=== PATIENT | female | born 1965 | race Caucasian/White ===

== ENCOUNTER 2018-04-09 10:14 | Outpatient (CLI) | payer MEDICARE, OTHER, SELFPAY ==
[2018-04-09 11:37] LABS: Hemoglobin A1C 8.4 % (4.5-6.2)
[2018-04-09 11:55] LABS: Anion Gap 11.4 mmol/L (3-11); BUN 17 mg/dL (7-18); CO2 24.6 mmol/L (21.0-32.0); CREATININE 0.79 mg/dL (0.55-1.02); Calcium 9.3 mg/dL (8.5-10.1); Chloride 108 mmol/L (98-107); Cholesterol 169 mg/dL (50-200); Glucose 90 mg/dL (70-100); HDL Cholesterol 48 mg/dL (40-60); LDL CHOLESTEROL 100 mg/dL (<100); Potassium 4.5 mmol/L (3.5-5.1); Sodium 144 mmol/L (136-145); Triglyceride 130 mg/dL (30-150)
[2018-04-09 11:56] LABS: COMMENT (LAB VIEW ONLY) 34.48 mg/dL; Microalb ug/mg Crea 15.4 ug/mg Cr
== END 2018-04-09 10:34 ==
PROVIDERS: PCP Nurse Practitioner Family; Visit Provider Nurse Practitioner Family
DX: E78.5 Hyperlipidemia, unspecified; E11.65 Type 2 diabetes mellitus with hyperglycemia
CPT/HCPCS: 36415; 80048; 80061; 83721; 82043; 82570; 83036

== ENCOUNTER → 2018-05-10 09:29 | Outpatient (BNVA) | payer MEDICARE, OTHER, SELFPAY | PROVIDERS: PCP Nurse Practitioner Family; Visit Provider Orthopaedic Surgery | DX: M17.12 Unilateral primary osteoarthritis, left knee (principal) | CPT/HCPCS: 20610; 99211; 99213; J1040 ==

== ENCOUNTER → 2018-08-27 10:38 | Outpatient (BNVA) | payer MEDICARE, OTHER, SELFPAY | PROVIDERS: PCP Nurse Practitioner Family; Referring Provider Nurse Practitioner Family; Visit Provider Orthopaedic Surgery | DX: M17.12 Unilateral primary osteoarthritis, left knee (principal); M65.331 Trigger finger, right middle finger; M54.9 Dorsalgia, unspecified | CPT/HCPCS: 26010; 99211; 99213; J1040 ==

== ENCOUNTER 2018-10-05 06:32 | Day surgery (SDC) | payer MEDICARE, OTHER, SELFPAY ==
[2018-10-05 06:44] VITALS: BP 115/64; PULSE 76; RESP 16; TEMP 36.1; O2SAT 97
[2018-10-05] MEDS: Lidocaine 2% Multi-Dose 50 ML VIAL (07:45)
--- NOTE | 2018-10-05 08:02 | W.PM.DSUDISC ---
Discharge Plan Disposition Patient Disposition: HOME Condition: Improving Discharge Details Reason For Visit: trigger finger Attending Provider: Julius Aguirre Primary Care Provider: Adrianne Alvarez Home Meds and New Rx's Prescriptions: Continued Shingrix (PF) 50 mcg/0.5 mL suspension for reconstitution 50 mcg IM .COMPLEX Qty: 1 RF: 1 blood-glucose meter 1 EACH misc 1 ea Miscellaneous DAILY Qty: 1 RF: 0 nystatin 15 GM cream 1 film Topical BID Qty: 1 RF: 3 blood sugar diagnostic [Blood Glucose Test] 1 EACH strip 1 ea Miscellaneous QID Qty: 400 RF: 3 lancets [Accu-Chek FastClix Lancing Dev] 1 EACH misc 1 ea Miscellaneous QID Qty: 400 RF: 3 Novolog Flexpen U-100 Insulin 100 UNIT/1 ML insulin pen 0 - 15 units Sub-Q AC Qty: 5 RF: 3 duloxetine 60 MG capsule,delayed release(DR/EC) 60 mg PO DAILY Qty: 90 RF: 3 Lantus Solostar U-100 Insulin 100 UNIT/1 ML insulin pen 88 units SQ HS Qty: 5 RF: 3 albuterol sulfate [Proventil HFA] 6.7 GM HFA aerosol inhaler 1 - 2 puff Inhalation Q4-6H PRN Qty: 1 RF: 3 polyethylene glycol 3350 [Miralax] 17 GM powder in packet 255 gm PO for colonoscopy Qty: 1 RF: 0 bisacodyl [Dulcolax (bisacodyl)] 5 MG tablet,delayed release (DR/EC) 5 mg PO ONCE Qty: 4 RF: 0 trazodone 100 MG tablet 100 mg PO HS Qty: 90 RF: 3 topiramate 50 MG tablet 50 mg PO BID Qty: 180 RF: 3 cyclobenzaprine 10 mg tablet 10 mg PO BID PRN (Reason: muscle spasm) Qty: 60 RF: 0 Jardiance 25 mg tablet 25 mg PO DAILY Qty: 90 RF: 3 fluticasone propionate 50 mcg/actuation spray,suspension 1 - 2 spray Intranasal DAILY PRN (Reason: allergy symptoms) Qty: 3 RF: 3 lisinopril [Prinivil] 20 mg tablet 20 mg PO DAILY Qty: 90 RF: 3 metformin 1,000 mg tablet 1,000 mg PO BID Qty: 180 RF: 3 omeprazole 20 mg capsule,delayed release(DR/EC) 20 mg PO BID Qty: 180 RF: 3 simvastatin 40 mg tablet 40 mg PO DAILY Qty: 90 RF: 3 Discharge Instructions Additional Instructions: KEEP YOUR RIGHT HAND ELEVATED ABOVE HEART LEVEL NEEDED TO HELP CONTROL PAIN AND SWELLING. EXERCISE YOUR FINGERS COMFORT ALLOWS. EXPECT A SMALL AMOUNT OF BLOODY DRAINAGE ON THE GAUZE BANDAGES. FOR SHOWERING TOMORROW, COVER YOUR HAND WITH A PLASTIC BAG AND A RUBBER BAND ABOUT THE FOREARM TO KEEP THE BANDAGES DRY. ON Monday10/07/18, YOU MAY REMOVE ALL OF YOUR BANDAGES AND GET YOUR INCISION WET IN THE SHOWER WITH SOAP AND WATER. GENTLY PAT THE STITCH DRY AND COVER YOUR WOUND WITH A BANDAID. RESUME NORMAL ACTIVITY TOLERATED. TAKE TYLENOL, ADVIL OR ALEVE FOR ANY DISCOMFORT. FOLLOW-UP WITH DR. AGUIRRE IN 1 WEEK FOR STITCH REMOVAL. Stand Alone Forms: Trevor Hung (DSU) Activity:: Elevate Remove Dressings/Wound Care:: 48 hours Shower/Bathe:: 48 hours Diet:: Carb Counting Discharge Orders Discharge Orders: Discharge Order (Routine); Ordered 10/05/18 Ordered By: Julius Aguirre Discharge Data Discharge Date/Time-TO BE ENTERED AT DEPARTURE: 10/05/18 08:11 DS: Diagnosis Discharge Diagnosis (1) Trigger finger: Status: Acute (2) Trigger finger: Status: Acute
--- NOTE | 2018-10-05 12:19 | ROE_ITS ---
REPORT OF OPERATIVE PROCEDURE DATE OF SURGERY October 05, 2018 PREOPERATIVE DIAGNOSIS Trigger finger, right middle finger. POSTOPERATIVE DIAGNOSIS Trigger finger, right middle finger. PROCEDURE Release A1 lonny, right middle finger. SURGEON Julius Larose M.D. [employer] Nurse ANESTHETIC 2% lidocaine plain. PREP ChloraPrep. INDICATIONS This patient has been troubled by chronic trigger finger abnormality of her ft middle finger. This murphy s been somewhat disabling for her. She has multiple medical problems and allergies. I met the patient in the Day Surgery holding area and re-reviewed the planned procedure with her, as she has had this done before on other fingers. The risks and benefits were discussed. She understood and wished to pr oceed. I marked her right middle finger. DESCRIPTION OF PROCEDURE She was brought to the Operating Suite, where time-out was instituted. The right hand was then preppe d with ChloraPrep. Sterile drapes were applied. Then, 2% lidocaine was used to create an anesthetic w heal over the MCP joint region on the volar surface of her right palm. After waiting an adequate amou nt of time and verifying anesthesia to the fingertip, a 1-cm transverse incision was made over the A1 lonny. The rest of the dissection was done by blunt dissection using Littler scissors. Ragnell ret ractors were inserted. The flexor tendon sheath was identified. A small opening was made with a #15 s calpel blade and then this was extended with Littler scissors. I had the patient flex and extend her middle finger, and she could do so without any further triggering. There was a mild amount of extrane ous synovial fluid verifying the abnormality. The wound was irrigated with saline and closed with a s mary suture of #5-0 Ethilon in a horizontal mattress fashion. The wound was dressed with Xeroform ga uze, 4x4s and a 2-inch conforming gauze bandage. The patient was taken to the Outpatient Recovery Courtney dickey tolerating the procedure well.
== END 2018-10-05 08:11 | disposition home or self-care (01) ==
PROVIDERS: PCP Nurse Practitioner Family; Visit Provider Orthopaedic Surgery
PROC: (CPT 26055; principal; 2018-10-05 07:30)
DX: M65.331 Trigger finger, right middle finger (principal)
CPT/HCPCS: 26055

== ENCOUNTER → 2018-10-11 08:37 | Outpatient (BNVA) | payer MEDICARE, OTHER, SELFPAY | PROVIDERS: PCP Nurse Practitioner Family; Referring Provider Nurse Practitioner Family; Visit Provider Orthopaedic Surgery | DX: Z47.89 Encounter for other orthopedic aftercare (principal); M65.331 Trigger finger, right middle finger ==

== ENCOUNTER → 2018-11-27 09:50 | Outpatient (BNVA) | payer MEDICARE, OTHER, SELFPAY | PROVIDERS: PCP Nurse Practitioner Family; Referring Provider Nurse Practitioner Family; Visit Provider Orthopaedic Surgery | DX: M17.12 Unilateral primary osteoarthritis, left knee (principal); M25.512 Pain in left shoulder; F17.210 Nicotine dependence, cigarettes, uncomplicated | CPT/HCPCS: 20610; 99211; 99212; J1040 ==

== ENCOUNTER → 2019-02-28 10:28 | Outpatient (BNVA) | payer MEDICARE, OTHER, SELFPAY | PROVIDERS: PCP Nurse Practitioner Family; Referring Provider Nurse Practitioner Family; Visit Provider Orthopaedic Surgery | DX: M17.12 Unilateral primary osteoarthritis, left knee (principal); E11.9 Type 2 diabetes mellitus without complications; Z79.4 Long term (current) use of insulin | CPT/HCPCS: 20610; 99211; 99213; J1040 ==

== ENCOUNTER 2019-05-07 07:52 | Outpatient (CLI) | payer MEDICARE, OTHER, SELFPAY ==
[2019-05-07 09:04] LABS: Hemoglobin A1C 8.1 % (4.5-6.2)
[2019-05-07 10:40] LABS: COMMENT (LAB VIEW ONLY) 32.58 mg/dL; Microalb ug/mg Crea 38.4 ug/mg Cr
[2019-05-07 11:11] LABS: Anion Gap 10.6 mmol/L (3-11); BUN 20 mg/dL (7-18); CO2 24.4 mmol/L (21.0-32.0); CREATININE 0.91 mg/dL (0.55-1.02); Calcium 9.9 mg/dL (8.5-10.1); Calculated LDL 160 mg/dL; Chloride 104 mmol/L (98-107); Cholesterol 243 mg/dL (50-200); Glucose 282 mg/dL (70-100); HDL Cholesterol 47 mg/dL (40-60); Sodium 139 mmol/L (136-145); Triglyceride 180 mg/dL (30-150)
== END 2019-05-07 08:12 ==
PROVIDERS: PCP Nurse Practitioner Family; Visit Provider Nurse Practitioner Family
DX: E11.29 Type 2 diabetes mellitus with other diabetic kidney complication (principal); R50.9 Fever, unspecified; E78.5 Hyperlipidemia, unspecified
CPT/HCPCS: 36415; 80048; 80061; 82043; 82570; 83036

== ENCOUNTER 2019-06-03 11:56 | Outpatient (CLI) | payer MEDICARE, OTHER, SELFPAY ==
--- NOTE | 2019-06-03 10:56 | DI.RAD_ITS ---
EXAM: XR STANDING ALIGNMENT INDICATION: left knee pain. COMPARISON: No exams were available for comparison TECHNIQUE: 2D digital imaging was performed. FINDINGS: Standing AP views were performed from the iliac crests through the ankles. There is mild bilateral h ip joint space narrowing and acetabular spurring. The right femoral head projects a few millimeters higher than the left. The knee joint spaces are relatively well maintained. Periarticular spurring is seen, greatest at the lateral tibial plateau on the left. There are minimal degenerative changes at the ankles. IMPRESSION: Degenerative changes greatest of the left lateral femoral tibial joint. Mild leg length discrepancy.
--- NOTE | 2019-06-03 10:56 | DI.RAD_ITS ---
EXAM: XR KNEE LT 2V AP,LAT INDICATION: left knee pain. COMPARISON: MRI L LOWER JOINT WO CONT from 07/21/2014 TECHNIQUE: 2D digital imaging was performed. FINDINGS: There is moderate narrowing of the lateral femoral tibial joint greater laterally. There is some jazmyne payal angulation. There is mild periarticular spurring. There is minimal spurring at the articular as pect of patella. IMPRESSION: Moderate to severe degenerative changes of the lateral femoral tibial joint
== END 2019-06-03 12:16 ==
PROVIDERS: PCP Nurse Practitioner Family; Referring Provider Nurse Practitioner Family; Visit Provider Student in an Organized Health Care Education/Training Program
DX: M25.562 Pain in left knee (principal); M17.12 Unilateral primary osteoarthritis, left knee; M21.70 Unequal limb length (acquired), unspecified site; F40.240 Claustrophobia; Z98.890 Other specified postprocedural states
CPT/HCPCS: 99213; 73560; 77073

== ENCOUNTER 2019-06-06 02:19 | Outpatient (CLI) | payer MEDICARE, OTHER, SELFPAY ==
--- NOTE | 2019-06-06 07:48 | DI.MRI_ITS ---
EXAM: MR LOWER JOINT LT WO CLINICAL HISTORY: left knee pain,. TECHNIQUE: Multiplanar multisequence MRI was performed. COMPARISON: MRI L LOWER JOINT WO CONT from 07/21/2014 FINDINGS: The anterior and posterior cruciate ligaments are unremarkable. The medial and lateral collateral ligaments are intact. The extensor mechanism, medial and lateral retinaculum and popliteus tendon are unremarkable. There is thinning of the articular cartilage in both the medial and lateral femoral tibial joints. The medial meniscus is intact. There is decreased size and abnormal signal seen in the body of the l ateral meniscus. There is abnormal signal seen in both the anterior and posterior horns of the later al meniscus. While this may represent a tear, degeneration and postsurgical changes should be consid ered. There is no evidence of occult fracture or avascular necrosis. There is a small joint effusion. No popliteal cyst is present. The muscles show normal signal and size. IMPRESSION: Abnormal signal in size in the lateral meniscus. This may be postsurgical, degeneration or tear. No evidence of a ligament tear.
== END 2019-06-06 02:39 ==
PROVIDERS: PCP Nurse Practitioner Family; Visit Provider Physician Assistant
DX: M25.562 Pain in left knee (principal); M25.462 Effusion, left knee; M25.862 Other specified joint disorders, left knee
CPT/HCPCS: 73721

== ENCOUNTER → 2019-06-20 12:53 | Outpatient (BNVA) | payer MEDICARE, OTHER, SELFPAY | PROVIDERS: PCP Nurse Practitioner Family; Referring Provider Nurse Practitioner Family; Visit Provider Student in an Organized Health Care Education/Training Program | DX: M17.12 Unilateral primary osteoarthritis, left knee (principal); M25.562 Pain in left knee; I10 Essential (primary) hypertension; E11.9 Type 2 diabetes mellitus without complications; Z79.4 Long term (current) use of insulin | CPT/HCPCS: 20610; 99213; J7318 ==

== ENCOUNTER → 2019-09-02 13:15 | Outpatient (BNVA) | payer MEDICARE, OTHER, SELFPAY | PROVIDERS: PCP Nurse Practitioner Family; Referring Provider Nurse Practitioner Family; Visit Provider Student in an Organized Health Care Education/Training Program | DX: M17.12 Unilateral primary osteoarthritis, left knee; M25.562 Pain in left knee; I10 Essential (primary) hypertension; E11.9 Type 2 diabetes mellitus without complications | CPT/HCPCS: 99213 ==

== ENCOUNTER → 2019-11-04 09:42 | Outpatient (BNVA) | payer MEDICARE, OTHER, SELFPAY | PROVIDERS: PCP Nurse Practitioner Family; Referring Provider Nurse Practitioner Family; Visit Provider Student in an Organized Health Care Education/Training Program | DX: M17.12 Unilateral primary osteoarthritis, left knee; M25.562 Pain in left knee; E11.9 Type 2 diabetes mellitus without complications; Z79.4 Long term (current) use of insulin | CPT/HCPCS: 99212; 99213 ==

== ENCOUNTER 2020-04-03 02:27 | Outpatient (CLI) | payer MEDICARE, OTHER, SELFPAY ==
[2020-04-03 10:06] LABS: HCT 42.1 % (36.0-46.0); HGB 13.8 g/dL (11.2-15.7); MCH 30.5 pg (27.0-33.0); MCHC 32.8 % (32.0-36.0); MCV 92.9 fL (80-95); MPV 9.9 fL (8.0-11.0); Platelet Count 395 10^3/uL (130-400); RBC 4.53 10^6/uL (3.93-5.22); RDW 12.4 % (11.7-14.6); RDW-SD 42.5 fL; WBC 15.44 10^3/uL (4.4-10.8)
[2020-04-03 11:08] LABS: Anion Gap 10.1 mmol/L (3-11); BUN 16 mg/dL (7-18); CO2 24.9 mmol/L (21.0-32.0); CREATININE 0.97 mg/dL (0.55-1.02); Calcium 9.7 mg/dL (8.5-10.1); Chloride 105 mmol/L (98-107); Estimated GFR 59.84 (mL/min/1.73m2); Glucose 102 mg/dL (74-106); Potassium 4.8 mmol/L (3.5-5.1); Sodium 140 mmol/L (136-145)
[2020-04-04 17:55] LABS: COVID-19 RT-PCR Result NEGATIVE (Negative)
== END 2020-04-03 02:47 ==
PROVIDERS: PCP Nurse Practitioner Family; Visit Provider Student in an Organized Health Care Education/Training Program
DX: M25.562 Pain in left knee (principal); M17.12 Unilateral primary osteoarthritis, left knee; Z11.59 Encounter for screening for other viral diseases; Z01.818 Encounter for other preprocedural examination
CPT/HCPCS: 36415; 80048; 85027; U0003

== ENCOUNTER 2020-04-03 09:41 | Outpatient (CLI) | payer MEDICARE, OTHER, SELFPAY ==
--- NOTE | 2020-04-03 09:00 | DI.RAD_ITS ---
EXAM: XR KNEE LT 3V AP,LAT,JEREMY CLINICAL HISTORY: knee pain TECHNIQUE: COMPARISON: CR XR KNEE LT 2V AP,LAT from 06/03/2019 FINDINGS: Three views were obtained. There is mild narrowing of the lateral tibiofemoral cartilaginous joint s pace. There is slight marginal osteophyte formation at the lateral tibiofemoral joint. Examination is otherwise unremarkable. IMPRESSION: Mild DJD lateral tibiofemoral joint. RADIATION DOSE DELIVERED: Total DLP
== END 2020-04-03 10:01 ==
PROVIDERS: PCP Nurse Practitioner Family; Referring Provider Nurse Practitioner Family; Visit Provider Physician Assistant
DX: M17.12 Unilateral primary osteoarthritis, left knee (principal); M25.562 Pain in left knee; Z11.59 Encounter for screening for other viral diseases; Z01.818 Encounter for other preprocedural examination
CPT/HCPCS: 36415; 73562; 80048; 85027; U0003

== ENCOUNTER 2020-04-08 06:00 | Observation (INO) | payer MEDICARE, OTHER, SELFPAY ==
[2020-04-08] VITALS (17 sets, daily range): BP systolic 119–146; BP diastolic 57–75; PULSE 74–87; RESP 12–22; TEMP 36.3–37; O2SAT 94–98
[2020-04-08] MEDS: Acetaminophen 500 MG TAB 1000 MG PO ×2 (06:50→13:37)
[2020-04-08] MEDS: Celecoxib 200 MG CAP 400 MG PO (06:50)
[2020-04-08] MEDS: Lactated Ringers 1,000 ML 80 ML IV ×2 (06:55→09:55)
[2020-04-08] MEDS: Bupivacaine 0.5% Pres-Free 30 ML VIAL (07:11)
[2020-04-08] MEDS: ceFAZolin 2 GM/50 ML BAG IVPB (07:36)
[2020-04-08] MEDS: Albuterol/Ipratropium 3 ML UPD VIAL (08:15)
[2020-04-08] MEDS: Bupivacaine 0.25% Pres-Free 30 ML VIAL (08:49)
[2020-04-08] MEDS: Normal Saline 20 ML VIAL (08:50)
[2020-04-08] MEDS: Ketorolac 30 MG/ML VIAL (08:52)
--- NOTE | 2020-04-08 08:59 | W.PM.OP ---
Date of service: 04/08/20 Time of Service: 08:59 Operative Note Operative Note DATE OF PROCEDURE: 04/08/20 PRE-OP DIAGNOSIS: Left Knee Osteoarthritis POST-OP DIAGNOSIS: same PROCEDURE: Left Total Knee Replacement SURGEON: Roger Kerns GRAIN OILSEED OR PASTURE FARM MANAGER: Iliana Guevara ANESTHESIA: regional and spinal ESTIMATED BLOOD LOSS: 250 PATHOLOGY: none sent TOURNIQUET TIME: 0 COMPLICATIONS: None Patient was transported to: PACU Patient's condition: stable Implants: 1. Depuy Attune Cementless Cruciate Retaining Femoral Component, Size 5 2. Depuy Attune Cementless Rotating Platform Tibial Component, Size 5 3. Depuy Attune 5x7mm CR/RP Poly 4. Depuy Attune Patellar Component, Size 35 Indications: I have seen Melanie in clinic for symptoms of knee arthritis, confirmed with radiographic findings. She has exhausted nonoperative methods and was having significant limitations in daily function and desired better function and less pain. I discussed the technical details of a knee replacement. I explained the risks of the procedure to include, but not limited to, bleeding, infection, pain, stiffness, fracture, damage to nerves and vessels, damage to muscles and tendons, loosening, need for repeat procedure, blood clot and cardiopulmonary demise. Despite these risks, Melanie elected to proceed. Findings: There was significant signs of arthritis throughout the knee. Focal full thickness cartilage defects were noted on both the medial and lateral femoral condyles as well as the patellar apex. Procedure Description: Melanie was greeted in the preoperative holding area where the correct side was identified and marked. The consent was reviewed with the patient and signed. The history and physical was updated. All questions were answered. Preoperative medications were administered: Acetaminophen 1000mg, Celebrex 400mg, and Gabapentin 300mg. An adductor canal block was then administered by the anesthesia team in the PACU. Melanie was taken back to the operating room. A spinal anesthestic was then administered. The patient was placed into the supine position on the operating room table. A nonsterile tourniquet was placed high onto the leg but only used for cementing. Posts were placed for positioning during the procedure. All bony prominences were well padded. Prophylactic antibiotics in the form of Cefazolin were administered. 1g of Tranxemic Acid was given intravenously within 30 minutes of incision. The left leg was then prepped with Chloraprep and draped in a standard fashion with impervious stockinette. A second prep with Chloraprep was performed prior to application of Iodine impregnated skin protection. A timeout to confirm correct identity, side and site, procedure, allergies, anesthesia, and medical concerns was performed. With the knee in some flexion, a midline incision was made overlying the knee. Full thickness skin flaps were raised once the extensor mechanism was encountered. These were raised medially and laterally. Any bleeding was controlled with electrocautery. Once the extensor mechanism was fully exposed, a medial parapatellar arthrotomy was performed in a flexed position. All bleeding from the arthrotomy and the geniculate arteries was coagulated. A medial subperiosteal peel was performed with electrocautery to the midcoronal plane. The fat pad was removed while keeping the patellar tendon protected. The anterior distal femur synovium was removed for later visualization. The ACL and PCL were resected and the anterior horn of the lateral meniscus was transected. The knee was then flexed with the patella everted. There were full thickness defects of the cartilage seen over the medial and lateral distal femur. Using a step drill, and based on preoperative templating, the femoral canal was entered. This was done with a step drill without any difficulty. The intramedullary distal femoral cut guide was inserted, set to a 6 degree valgus cut and 9mm cut thickness. The distal femoral cut guide was then held in position and pinned. With the soft tissues protected, the distal cut was performed. This was passed over a few times to ensure a planar cut. I then turned attention to the tibia. The extramedullary guide was placed onto the leg. The distal aspect was slid medial to adjust for position of center of ankle and stay in line with shaft of the tibia. Approximately 3-5 degrees of posterior slope was kept in the proximal cutting guide. The center of the guide was aligned with the PCL. The stylus was used to assess cut thickness. The lateral side, most involved side, was set for a 5mm cut which corresponded to 8mm medially. This was then held in position and pinned into place with 2 additional pins and a cross pin for stability. The medial and lateral collateral ligaments were protected and the cut was performed. With this completed, it was assessed and noted to be of appropriate dimensions. The guide was removed. A spacer block was inserted and the knee was brought into extension. The 7mm spacer block provided full extension, without hyperextension and with stability of both the medial and lateral collateral ligaments was assessed. The pins from the femur and the tibia were then removed. The distal femur was then sized. The anterior stylus was placed onto the lateral ridge of the anterior femur. This indicated a size 5 femur. The external rotation of the guide was adjusted to 3 degrees to match the epicondylar axis, perpendicular to Early?s line. The 4-in-1 cutting guide was the placed. The posterior medial femur cut was evaluated and appeared of good thickness. The spacer block was inserted underneath the cutting guide and stability was confirmed in 90 degrees of flexion. An henrietta wing was used to confirm appropriate position of the anterior cut to avoid notching. This cutting guide was ensured to be flush on the cut surface and then pinned into place with headed pins. While protecting the soft tissues, quad tendon, and collateral ligaments, the anterior and posterior cuts were performed with a saw. The central two pins were removed and the posterior and anterior chamfers were cut next. The notch-cutting guide was placed. This was pinned to lateralize the femoral component as much as possible while keeping it flush on the cut surface. This was then pinned into position. A reciprocating saw was used to make the notch cut. A rasp smoothed the cut surfaces. The medial and lateral menisci were removed. A trial femoral component was then inserted, impacted down to the cut surfaces, and the lug holes were drilled. A provisional trial tibial component was placed and the knee was brought through range of motion. There was noted to be excellent extension and flexion. There was no significant instability. The patella was tracking without thumbs. A size 7mm polyethylene component provided the best range of motion and stability with less than 2mm gapping with medial and lateral stress and full extension without significant hyperextension. The tibial cut surface was fully exposed. The tibia was then sized as a 5. The tibia had been previously marked during trialing to correspond to the center of the tibial component to help with rotation. The trial was aligned to this iliana, approximately rotated to the medial 1/3rd of the tibial tubercle. The trial was pinned into place. The tibia was prepared with a reamer and a keel punch and lug holes. The knee was then brought into extension and the patella was measured as 22mm. Using the patellar clamp and cut guide, this was resected to a flat surface with at least 13mm of thickness remaining. The size 35 patella fit the best. This was oriented and then clamped into position. The lugs were drilled. The trial components were removed. The final components were opened on the back table. The periosteal and capsular tissues, especially posteriorly, around the knee were then systematically injected with a periarticular cocktail consisting of 50cc 0.25% Marcaine, 30mg Ketorolac, 20cc of Exparal and 50cc of injectable saline. The knee was thoroughly irrigated with a pulse lavage and dried. Irrisept was also used to irrigate the tissues. On the back table, with the implants opened, the cement was mixed. One batche of high viscosity cement were prepared with vacuum assistance. After the cement was ready a small amount was placed on the cut surface of the patella and the patellar button was clamped into position and held. During this process attention was turned to the gutters of the knee and for all interfaces for any excess cement. While the cement was hardening, the cementless knee components were placed. Starting with the tibial component, the tibia was subluxed anteriorly and the lug holes of the component were lined up. The tibia was then impacted with an impactor and mallet until the tibial component was in contact with the tibia. The final polyethylene component was inserted. Then, the femoral component was inserted. The lug holes were aligned and the component was impacted into position. The knee was irrigated with Irrisept chlorhexadine solution. This was allowed to sit in the knee for 3 minutes. After the cement had finally cured, approximately 15min, the clamp was removed from the patella and the knee was taken through range of motion. The patella was tracking with a no-thumbs technique. The capsule was then reapproximated with a No. 1 Vicryl at multiple locations. The capsule was finally closed with a No. 2 Stratafix, barbed suture. The tourniquet was then released and the arthrotomy appeared watertight without significant bleeding. The second dosing of 1g TXA was started. Deep tissues were then reapproximated with 0 Vicryl and 2-0 Vicryl. The skin was closed with a running 3-0 Monocryl in a subcuticular fashion. This was reinforced with skin glue. A Mepilex silver dressing was applied along with a [id number] LIANNA wrap. A CryoCuff was applied. Melanie was transferred to the hospital bed without difficulty an suffering no apparent complication. Melanie has a good prognosis. Physical therapy will start today and without restrictions, weight-bearing as tolerated. Aspirin 81mg BID will be used for DVT prophylaxis.
--- NOTE | 2020-04-08 09:36 | DSE_ITS ---
Date of service: 04/08/20 Time of Service: 15:11 DS: Diagnosis Discharge Diagnosis (1) Primary osteoarthritis of left knee: Status: Chronic Discharge Plan Disposition Patient Disposition: HOME Condition: Good Discharge Details Reason For Visit: L KNEE TOTAL Admit Date/Time: 04/08/20 06:00 Admit Provider: Roger Kerns Attending Provider: Roger Kerns Primary Care Provider: Adrianne Alvarez Hospital Course Hospital Course: Patient was admitted to the medical/surgical floor following the procedure. The surgery was tolerated well without any notable medical, surgical, or anesthetic complications. Mobilization began postoperatively. She was voiding spontaneously. Vitals were stable. Physical therapy worked with the patient and was cleared for discharge home. No acute medical issues. Pain was controlled on oral regimen. Home Meds and New Rx's Prescriptions: New aspirin 81 mg tablet,delayed release (DR/EC) 81 mg PO BID Qty: 60 RF: 0 acetaminophen 500 mg tablet 1,000 mg PO Q8H PRN (Reason: pain) Qty: 90 RF: 3 hydromorphone 2 mg tablet 2 mg PO Q4H PRN (Reason: pain) Qty: 18 RF: 0 meloxicam 15 mg tablet 15 mg PO DAILY Qty: 30 RF: 0 Continued duloxetine 60 mg capsule,delayed release(DR/EC) 60 mg PO DAILY Qty: 90 RF: 3 insulin aspart U-100 [Novolog Flexpen U-100 Insulin] 100 unit/mL (3 mL) insulin pen See Rx Instructions Sub-Q AC Qty: 15 RF: 6 metformin 1,000 mg tablet 1,000 mg PO BID Qty: 180 RF: 3 nystatin 100,000 unit/gram cream 1 applic Topical BID PRN (Reason: rash) Qty: 15 RF: 3 Victoza 3-Anastacio 0.6 mg/0.1 mL (18 mg/3 mL) pen injector 1.8 mg SC DAILY Qty: 9 RF: 3 trazodone 100 mg tablet 150 mg PO HS Qty: 135 RF: 3 cyclobenzaprine 10 mg tablet 10 mg PO BID PRN (Reason: muscle spasm) Qty: 40 RF: 3 albuterol sulfate [Proventil HFA] 90 mcg/actuation HFA aerosol inhaler 1 - 2 puff Inhalation Q4-6H PRN Qty: 1 RF: 3 fluticasone propionate 50 mcg/actuation spray,suspension 1 - 2 spray Intranasal DAILY PRN (Reason: allergy symptoms) Qty: 3 RF: 3 lisinopril [Prinivil] 20 mg tablet 20 mg PO DAILY Qty: 90 RF: 3 omeprazole 20 mg capsule,delayed release(DR/EC) 20 mg PO BID Qty: 180 RF: 3 topiramate 50 mg tablet 50 mg PO BID Qty: 180 RF: 0 simvastatin 40 mg tablet 40 mg PO DAILY Qty: 90 RF: 3 Lantus Solostar U-100 Insulin 100 unit/mL (3 mL) insulin pen 87 unit subcut HS Qty: 27 RF: 3 Jardiance 25 mg tablet 25 mg PO DAILY Qty: 90 RF: 3 Discontinued Shingrix (PF) 50 mcg/0.5 mL suspension for reconstitution 50 mcg IM .COMPLEX Qty: 1 RF: 1 alprazolam 0.5 mg tablet 0.5 mg PO ONCE PRN (Reason: claustrophobia) Qty: 2 RF: 0 No Action (DME) Blood Glucose Test strip 1 ea Miscellaneous QID Qty: 400 RF: 3 (DME) blood-glucose meter 1 EACH misc 1 ea Miscellaneous DAILY Qty: 1 RF: 0 (DME) lancets [Accu-Chek FastClix Lancing Dev] 1 EACH misc 1 ea Miscellaneous QID Qty: 400 RF: 3 Discharge Instructions Additional Instructions: Dr. Kerns?s Total Knee Discharge Instructions Activity: The most important activity is to walk. You should try to take short walks a few times a day. It is important that when resting you work on keeping the knee straight. Avoid putting a pillow behind the knee as this will encourage flexion. Work on range of motion exercises as provided by Physical Therapy and the preoperative booklet. - Start outpatient physical therapy within 2 weeks. - You should wear the CODI hose on both legs for 2 weeks. Dressing: Keep the surgical dressing (Mepilex) in place for at least one week. If you went home on the surgical day, you should remove the LIANNA wrap on the second day and then apply the CODI hose. The dressing may get wet after 3 days but avoid soaking the dressing. If it gets wet, just lightly pat dry. Most patient prefer to cover with ClingWrap or Saran Wrap to keep the dressing dry. After the first week, the dressing may be removed and replaced with light gauze and tape or nothing. Medications: - You should take Tylenol and anti-inflammatory Meloxicam as your primary pain control medications - You have been prescribed a stronger pain medication Hydromorphone for breakthrough pain, take as needed as prescribed. - You should continue your stomach acid reduction agent Omeprazole to help reduce stomach acid and reflux. - You will be taking Aspirin 81mg twice a day for DVT prevention unless instructed otherwise. - If you have constipation you should take Colace or Miralax (both [id number]). It takes most people 3-4 days to have a bowel movement. - You should also monitor your sugars closely and administer your Insulin Aspart per sliding scale accordingly. Follow-up: 2 weeks. You should also call physical therapy to work on scheduling outpatient therapy sessions which can begin at 2 weeks. If you have any acute concerns or questions, please do not hesitate to contact the office at [phone]. You may contact Dr. Kerns with any questions after hours through the hospital at [phone] or on his cell phone at [phone]. Stand Alone Forms: Nursing Discharge Form Referrals: Roger Kerns MD [ [facility] STAFF PHYSICIAN] - 04/23/20 9:30 am Activity:: Activity as Tolerated Equipment/Supplies:: Walker Diet:: As Tolerated Discharge Orders Discharge Orders: Discharge Order (Routine); Ordered 04/08/20 Ordered By: Roger Kerns DS: Summary Status at Discharge Functional status at discharge: uses cane/walker Overall status at discharge: patient is progressing back to baseline Mental Status: mental status grossly normal Speech and Movement: speech and movement normal Mood: congruent mood Affect: normal affect Exam Psych Mental Status: mental status grossly normal Speech and Movement: speech and movement normal Mood: congruent mood Affect: normal affect DS: Data Vitals/I&O Vitals and I&O: Vital Signs Temperature 36.4 C L 04/08/20 09:25 Pulse 75 04/08/20 09:25 Pulse Rhythm Regular 04/08/20 06:42 Respiratory Rate 22 04/08/20 09:25 Respiratory Effort 04/08/20 06:42 Respiratory Depth Normal 04/08/20 06:42 Blood Pressure 141/61 H 04/08/20 09:25 Pulse Oximetry 98 04/08/20 09:25 Respiratory End-tidal CO2 24 04/08/20 09:25 Oxygen Delivery Method Nasal Cannula 04/08/20 09:25 Oxygen Flow Rate 3 04/08/20 09:25 Pain Level 2 04/08/20 09:25 Intake & Output 04/07/20 04/07/20 04/08/20 11:59 23:59 11:59 Intake Total 1070 / 1070 Output Total 250 / 250 Balance 820 / 820 Weight 83.1 kg Intake: IV 1070 / 1070 Output: Estimated Blood Loss 250 / 250 Other: Emesis Description None [facility] Medical History Allergic rhinitis, unspecified (01/28/16) BMI 36.0-36.9,adult Chronic radicular low back pain 05/05/16 Lumbar Sacral Medial Branch Block. Dr Arcadio Javier, DO Depression, major Essential hypertension Female infertility (10/15/15) Fibromyalgia Heart murmur Since childhood Hyperlipidemia 04/2019 labs: not ideal response to moderate intensity statin therapy; consider adjusting statin therapy if not improved at next check Insomnia Methicillin resistant Staphylococcus aureus infection (10/15/15) Microalbuminuria (04/15/16) Migraine MRSA infection 2012. Required hospitalization, due to insulin pump Polyarthralgia (02/27/17) Tobacco use disorder Trigger finger Type 2 diabetes mellitus with microalbuminuria (04/15/16) HbA1c goal <8% Vitamin B deficiency B12 level was less than 14 at the [place]. Surgical History Arthroplasty of knee (08/27/14) X3 LEFT KNEE ARTHROSCPY/DR. AGUIRRE History of appendectomy History of bone cyst S/p surgical removal (R) MTP joint Knee surgery x3. L knee Oophrectomy, Right Status post trigger finger release Family History Mother , COPD at age 65. COPD (chronic obstructive pulmonary disease) Smoker Sister Substance abuse EtOH Fibromyalgia Sister Substance abuse EtOH Fibromyalgia Brother Substance abuse EtOH Social History Smoking/Tobacco Use Status: Current every day Tobacco Type: cigarettes Smoking packs per day: 0.5 Smoking cigarettes per day: 10.0 Years smoked: 30 Smoking pack-years: 15.00 Alcohol Intake: never Drug use: Daily Substance use type: marijuana Adopted: No Caregiver/Support person: No Foster care: No Communication Needs: None Pets and animals: Yes Pets and animals: dog(s) Current gender identity: female What type of physical activity do you participate in: walking Duration: 45-60 minutes/day Frequency: daily Seatbelt use: always Water heater temp set <120 deg: Yes Working smoke detector in home: Yes Fire extinguisher in home: Yes Carbon monox detector in home: Yes
[2020-04-08] MEDS: fentaNYL 100 MCG/2 ML VIAL IVP (09:50)
--- NOTE | 2020-04-08 11:10 | PT.INIE ---
Date of service: 04/08/20 Time of Service: 11:10 PT Notes Visit Reasons: L KNEE TOTAL Physical Therapy Inpatient Initial Evaluation Date: 04/08/2020 Referring Doctor: Roger Kerns MD PT Orders: PT CONSULT: tatus post Ortho surgery Precautions: Fall. Standard. WBAT on left LE. Patient Profile/Admitting Diagnosis: Melanie is a 54-year-old female with osteoarthritis of left knee status post left total knee arthroplasty on postoperative day 0. PMHX: Medical History Allergic rhinitis, unspecified (01/28/16) BMI 36.0-36.9,adult Chronic radicular low back pain 05/05/16 Lumbar Sacral Medial Branch Block. Dr Arcadio Javier, Depression, major Essential hypertension Female infertility (10/15/15) Fibromyalgia Heart murmur Since childhood Hyperlipidemia 04/2019 labs: not ideal response to moderate intensity statin therapy; consider adjusting statin therapy if not improved at next check Insomnia Methicillin resistant Staphylococcus aureus infection (10/15/15) Microalbuminuria (04/15/16) Migraine MRSA infection 2012. Required hospitalization, due to insulin pump Polyarthralgia (02/27/17) Tobacco use disorder Trigger finger Type 2 diabetes mellitus with microalbuminuria (04/15/16) HbA1c goal <8% Vitamin B deficiency B12 level was less than 14 at the [place]. Surgical History Arthroplasty of knee (08/27/14) X3 LEFT KNEE ARTHROSCPY/DR. AGUIRRE History of appendectomy History of bone cyst S/p surgical removal (R) MTP joint Knee surgery x3. L knee Oophrectomy, Right Status post trigger finger release Social History/Home Situation: Lives alone in a private home with 1 step to enter without rails. Has a cat named Smiley. Niece downstairs from her. Significant other Fracisco will be staying with her for first couple of days when she goes home today. Equipment Owned/DME: Standard walker Subjective: Agreeable to PT. Reports no pain. Denies headache, chest pain, and dizziness throughout. Hopeful that she can go home today. States that she has adequate support at home. Objective: General Observation: Cryocuff on L knee. LIANNA wraps on L knee. IV in right UE. Mental Status: Alert and oriented x 4 Pain: Only reported minimal ache in the medial side of the knee with weight bearing activity ROM: Right Upper Extremity: Shoulder Flexion WFL. Shoulder abduction WFL. Elbow flexion WFL. Wrist flexion WFL. Opening and closing of hand WFL. Left Upper Extremity: Shoulder Flexion WFL. Shoulder abduction WFL. Elbow flexion WFL. Wrist flexion WFL. Opening and closing of hand WFL. Right Lower Extremity: Hip flexion WFL. Hip abduction WFL. Knee flexion WFL. Ankle dorsiflexion WFL. Ankle plantarflexion WFL. Left Lower Extremity: Hip flexion WFL. Hip abduction WFL. Knee flexion about 10 degrees to 90 degrees. Knee extension -10 degrees. Ankle dorsiflexion WFL. Ankle plantarflexion WFL. Strength: Right Upper Extremity: Shoulder flexors 4/5. Shoulder abductors 4/5. Elbow flexors 5/5. Elbow extensors 5/5. Stereo Map Plotter Operator strong. Left Upper Extremity: Shoulder flexors 4/5. Shoulder abductors 4/5. Elbow flexors 5/5. Elbow extensors 5/5. Stereo Map Plotter Operator strong. Right Lower Extremity: Hip flexors 4/5. Hip abductors 4/5. Knee flexors 4/5. Knee extensors 4/5. Ankle dorsiflexors 4/5. Ankle plantarflexors 4/5. Left Lower Extremity: Hip flexors 4/5. Hip abductors 4/5. Knee flexors 3-/5. Knee extensors 3-/5. Ankle dorsiflexors 4/5. Ankle plantarflexors 4/5. Sensation: Intact as to pain and pressure on bilateral lower extremities. Bed Mobility/Transfers: Supine to sit Supervision Sit to supine Supervision Sit to stand contact-guard assist Stand to sit contact-guard assist Bed to chair contact-guard assist Chair to bed contact-guard assist Gait: Tolerated 300 feet with front wheeled with step to gait pattern acquired standby assist from PT wheelchair follow by significant other Fracisco. Reported minimal ache in the medial side of the L knee. Decreased step height. Balance: Static Sitting: Normal Dynamic Sitting: Normal Static Standing: Fair Dynamic Standing: Fair Special Tests: Mobility Limitations Standardized Measure [facility] 6 clicks Basic Mobility Inpatient Short Form: Raw Score: 22 CMS Score: 21% deficit Informed Consent/Education: Patient instructed in purpose of PT consult and plan of care. Assessment: Melanie demonstrates the need for a front wheeled walker for all mobility performance to maximize independence with transfers and ambulation and reduce fall risk. Patient presents with clinical signs and symptoms consistent with current/admitting diagnoses that have resulted to mobility limitations, gait instability, generalized weakness, and impairment of motor control as demonstrated by the following impairment level findings: 1. Decreased strength to left knee major muscle groups 2. Impaired standing balance 3. Impaired activity tolerance 4. Limitation of joint range of motion in knee Impairments are contributing to the following functional limitations: 1. Inability to safely ambulate without assistive device 2. Increase completion time for mobility ADL performance 3. Increased fall risk 4. Inability to negotiate steps alone safely Patient is assessed as a 04062 moderate complexity based on the following: History: 54-year-old female with impairment level findings, functional limitations, and past medical history as indicated above Examination: Demonstrable impairment in strength, balance, and mobility level with underlying impairments and functional limitations as documented above Presentation:Evolving Decision Makin moderate complexity Goals: Goals X 1 more treatment session 1. Supine-Sit independent 2. Sit-Supine independent 3. Sit-Stand independent 4. Stand-Sit independent 5. Bed-Chair independent 6. Chair-Bed independent 7. Supervision gait on level surface with use of least restrictive device for at least 300 feet without report of pain nor dyspnea 8. Supervision stair negotiation while holding onto bilateral rails for at least 3 steps without report of pain nor dyspnea Plan of Care/Treatment Plan: Melanie will be seen for one more treatment session prior to discharge to home. Plan of care has been reviewed with the ACTION FINISHER providing the service under Physical Therapy direction. Initiate Physical Therapy intervention for strengthening, bed mobility, transfers, gait, stairs, balance training, use of assistive device. DISCHARGE RECOMMENDATIONS: Home when medically cleared by orthopedic surgeon. Outpatient physical therapy services in order to return to premorbid independent level. TREATMENT CODE/TIME: 66591 x 25-minute, 33126 x 20 minutes beginning at 11:10 AM. Thank you for the opportunity to participate in the care of this patient. Mini Gilbert PT, DPT, CLT [facility] [place], [place]
[2020-04-08] MEDS: Insulin Aspart 300 UNITS/3 ML PEN SC (12:00)
[2020-04-08] MEDS: HYDROmorphone 2 MG TAB PO (12:34)
[2020-04-08] MEDS: ceFAZolin 1 GM/50 ML BAG IVPB (13:37)
--- NOTE | 2020-04-08 15:45 | PT.INTREAT ---
Date of service: 04/08/20 Time of Service: 15:45 PT Notes Visit Reasons: L KNEE TOTAL Inpatient Physical Therapy Treatment Note [facility] Date: 04/08/2020 PRECAUTIONS: Fall, WBAT L SUBJECTIVE: Melanie states I want to go home. She is agreeable to participating in PT. OBJECTIVE: PAIN: Patient c/o L knee pain with ther ex BED MOBILITY/TRANSFERS Supine-sit: I with HOB flat Sit-supine: I with HOB flat Sit-stand: I Stand-sit: I Bed-chair: S Chair-bed: S GAIT Assistive Device: FWW Weight bearing: WBAT L Assist: S Distance: 300' Deviation: Step-through gait pattern utilized THEREX: Patient was instructed in a LE strengthening and stabilization program, in a supine, as per flow sheet. She requires verbal cueing for proper exercise performance. STAIRS: Patient declined need for stair training TOILETING: Patient toileted, independently. ASSESSMENT: Patient demonstrates independence with transfers, bed mobility, and toileting at this time. Patient would benefit from continued LE strengthening for improved mobility. PLAN: As per primary PT TREATMENT CODE/TIME: 20 minutes; [id number]
--- NOTE | 2020-04-10 18:40 | INDS_ITS ---
Date of service: 04/10/20 PT Notes Visit Reasons: L KNEE TOTAL Physical Therapy Inpatient Discharge Summary Date: 04/10/2020 Dates of service: 04/08/2020 only Referring Doctor: Roger Kerns MD PT Orders: PT CONSULT: rigoberto post Ortho surgery Precautions: Fall. Standard. WBAT on left LE. Patient Profile/Admitting Diagnosis: Melanie is a 54-year-old female with osteoarthritis of left knee status post left total knee arthroplasty on postoperative day 0. PMHX: Medical History Allergic rhinitis, unspecified (01/28/16) BMI 36.0-36.9,adult Chronic radicular low back pain 05/05/16 Lumbar Sacral Medial Branch Block. Dr Arcadio Javier, DO Depression, major Essential hypertension Female infertility (10/15/15) Fibromyalgia Heart murmur Since childhood Hyperlipidemia 04/2019 labs: not ideal response to moderate intensity statin therapy; consider adjusting statin therapy if not improved at next check Insomnia Methicillin resistant Staphylococcus aureus infection (10/15/15) Microalbuminuria (04/15/16) Migraine MRSA infection 2012. Required hospitalization, due to insulin pump Polyarthralgia (02/27/17) Tobacco use disorder Trigger finger Type 2 diabetes mellitus with microalbuminuria (04/15/16) HbA1c goal <8% Vitamin B deficiency B12 level was less than 14 at the [place]. Surgical History Arthroplasty of knee (08/27/14) X3 LEFT KNEE ARTHROSCPY/DR. AGUIRRE History of appendectomy History of bone cyst S/p surgical removal (R) MTP joint Knee surgery x3. L knee Oophrectomy, Right Status post trigger finger release Social History/Home Situation: Lives alone in a private home with 1 step to enter without rails. Has a cat named Smiley. Niece downstairs from her. Significant other Fracisco will be staying with her for first couple of days when she goes home today. Equipment Owned/DME: Standard walker Subjective: NT. See most recent SLAT BASKET MAKER MACHINE notes. Objective: General Observation: NT. See most recent SLAT BASKET MAKER MACHINE notes. Mental Status: NT. See most recent SLAT BASKET MAKER MACHINE notes. Pain: NT. See most recent SLAT BASKET MAKER MACHINE notes. ROM: Right Upper Extremity: Shoulder Flexion WFL. Shoulder abduction WFL. Elbow flexion WFL. Wrist flexion WFL. Opening and closing of hand WFL. Left Upper Extremity: Shoulder Flexion WFL. Shoulder abduction WFL. Elbow flexion WFL. Wrist flexion WFL. Opening and closing of hand WFL. Right Lower Extremity: Hip flexion WFL. Hip abduction WFL. Knee flexion WFL. Ankle dorsiflexion WFL. Ankle plantarflexion WFL. Left Lower Extremity: Hip flexion WFL. Hip abduction WFL. Knee flexion about 10 degrees to 90 degrees. Knee extension -10 degrees. Ankle dorsiflexion WFL. Ankle plantarflexion WFL. Strength: Right Upper Extremity: Shoulder flexors 4/5. Shoulder abductors 4/5. Elbow flexors 5/5. Elbow extensors 5/5. Machine Guide Base Winder strong. Left Upper Extremity: Shoulder flexors 4/5. Shoulder abductors 4/5. Elbow flexors 5/5. Elbow extensors 5/5. Machine Guide Base Winder strong. Right Lower Extremity: Hip flexors 4/5. Hip abductors 4/5. Knee flexors 4/5. Knee extensors 4/5. Ankle dorsiflexors 4/5. Ankle plantarflexors 4/5. Left Lower Extremity: Hip flexors 4/5. Hip abductors 4/5. Knee flexors 3-/5. Knee extensors 3-/5. Ankle dorsiflexors 4/5. Ankle plantarflexors 4/5. Sensation: Intact as to pain and pressure on bilateral lower extremities. Bed Mobility/Transfers: Supine to sit independent Sit to supine independent Sit to stand independent Stand to sit independent Bed to chair independent Chair to bed independent Gait: Tolerated 300 feet with front wheeled with step to gait pattern acquired supervision. Step through gait pattern. Balance: Static Sitting: Normal Dynamic Sitting: Normal Static Standing: Fair Dynamic Standing: Fair Assessment: Melanie demonstrates the need for a front wheeled walker for all mobility performance to maximize independence with transfers and ambulation and reduce fall risk. Goals: Goals X 1 more treatment session 1. Supine-Sit independent MET 2. Sit-Supine independent MET 3. Sit-Stand independent MET 4. Stand-Sit independent MET 5. Bed-Chair independent MET 6. Chair-Bed independent MET 7. Supervision gait on level surface with use of least restrictive device for at least 300 feet without report of pain nor dyspnea MET 8. Supervision stair negotiation while holding onto bilateral rails for at least 3 steps without report of pain nor dyspnea MET DISCHARGE RECOMMENDATIONS: Home when medically cleared by orthopedic surgeon. Outpatient physical therapy services in order to return to premorbid independent level. TREATMENT CODE/TIME: PR Thank you for the opportunity to participate in the care of this patient. Mini Gilbert PT, DPT, CLT [facility] [place], [place]
== END 2020-04-08 15:55 | disposition home or self-care (01) ==
LOC: PDS 09:45 → MS 09:46
PROVIDERS: Admitting Provider Student in an Organized Health Care Education/Training Program; PCP Nurse Practitioner Family; Visit Provider Student in an Organized Health Care Education/Training Program
PROC: 0SRD0J9 Replacement of Left Knee Joint with Synthetic Substitute, Cemented, Open Approach (ICD-10-PCS; CPT 27447; principal; 2020-04-08 07:30)
DX: M17.12 Unilateral primary osteoarthritis, left knee (principal); M25.562 Pain in left knee; Z96.652 Presence of left artificial knee joint; G89.18 Other acute postprocedural pain; I10 Essential (primary) hypertension; Z86.14 Personal history of Methicillin resistant Staphylococcus aureus infection; F17.210 Nicotine dependence, cigarettes, uncomplicated; E11.9 Type 2 diabetes mellitus without complications
CPT/HCPCS: 27447; C1776; 76942; 97162; 97530; NC; G0378; J0690; J1100; J1885; J2001; J2250; J2405; J3010; J7620

== ENCOUNTER 2020-04-23 09:32 | Outpatient (CLI) | payer MEDICARE, OTHER, SELFPAY ==
--- NOTE | 2020-04-23 09:15 | DI.RAD_ITS ---
EXAM: XR STANDING ALIGNMENT CLINICAL HISTORY: 1st post op TECHNIQUE: COMPARISON: CR XR STANDING ALIGNMENT from 06/03/2019 CR XR KNEE LT 1V from 04/23/2020 FINDINGS: AP standing alignment views and lateral view of the left knee are interpreted in conjunction. There are moderate degenerative changes of both hips. There is a total knee joint replacement position on the left. Components of the TKR appear well seated. IMPRESSION: RADIATION DOSE DELIVERED: Total DLP
== END 2020-04-23 09:52 ==
PROVIDERS: PCP Nurse Practitioner Family; Referring Provider Nurse Practitioner Family; Visit Provider Physician Assistant
DX: Z96.652 Presence of left artificial knee joint (principal); M16.0 Bilateral primary osteoarthritis of hip
CPT/HCPCS: 73560; 77073

== ENCOUNTER 2020-05-08 09:21 | Outpatient (REF) | payer MEDICARE, OTHER, SELFPAY ==
[2020-05-08 19:45] LABS: Microalb ug/mg Crea 25.3 ug/mg Cr
== END 2020-05-08 09:41 ==
LOC: LBN 09:21
PROVIDERS: PCP Nurse Practitioner Family; Visit Provider Nurse Practitioner Family
DX: E11.9 Type 2 diabetes mellitus without complications (principal)
CPT/HCPCS: 82043; 82570

== ENCOUNTER 2020-05-22 02:35 | Outpatient (CLI) | payer MEDICARE, OTHER, SELFPAY ==
[2020-05-22 12:13] LABS: ALT 13 U/L (14-59); AST 8 U/L (15-37); Albumin 3.6 g/dL (3.4-5.0); Alkaline Phosphatase 84 U/L (46-116); Anion Gap 9.8 mmol/L (3-11); BUN 14 mg/dL (7-18); Bilirubin, Total 0.2 mg/dL (0.2-1.0); CO2 24.2 mmol/L (21.0-32.0); CREATININE 0.95 mg/dL (0.55-1.02); Calcium 8.9 mg/dL (8.5-10.1); Calculated LDL 60 mg/dL (<100); Chloride 108 mmol/L (98-107); Cholesterol 122 mg/dL (<200); Glucose 57 mg/dL (74-106); HDL Cholesterol 38 mg/dL (40-60); Potassium 4.1 mmol/L (3.5-5.1); Sodium 142 mmol/L (136-145); Total Protein 7.4 g/dL (6.4-8.2); Triglyceride 120 mg/dL (<150)
[2020-05-25 16:42] LABS: HIV-1/2 Ag & Ab Screen Negative (Negative)
[2020-06-02 12:33] LABS: Hepatitis C Ab w Rflx HCV PCR Negative (Negative)
== END 2020-05-22 02:55 ==
PROVIDERS: PCP Nurse Practitioner Family; Visit Provider Nurse Practitioner Family
DX: Z47.1 Aftercare following joint replacement surgery (principal); Z96.652 Presence of left artificial knee joint; I10 Essential (primary) hypertension; E11.69 Type 2 diabetes mellitus with other specified complication
CPT/HCPCS: 36415; 80053; 80061; 86803; 87389

== ENCOUNTER 2020-07-03 10:19 | Outpatient (CLI) | payer MEDICARE, OTHER, SELFPAY ==
[2020-07-03 11:50] LABS: C-Reactive Protein 0.29 mg/dL (0.0-0.3)
[2020-07-03 12:03] LABS: ESR 45 mm/hr (0-30)
== END 2020-07-03 10:39 ==
PROVIDERS: PCP Nurse Practitioner Family; Visit Provider Student in an Organized Health Care Education/Training Program
DX: M25.562 Pain in left knee (principal); Z96.652 Presence of left artificial knee joint
CPT/HCPCS: 36415; 85652; 86140

== ENCOUNTER → 2020-07-03 11:55 | Outpatient (CLI) | payer MEDICARE, OTHER, SELFPAY ==
--- NOTE | 2020-07-03 09:59 | DI.RAD_ITS ---
EXAM: XR KNEE LT 2V AP,LAT CLINICAL HISTORY: L TKA. TECHNIQUE: 2D digital imaging was performed. COMPARISON: CR XR KNEE LT 3V AP,LAT,JEREMY from 04/03/2020 FINDINGS: BONES: There are stable post operative changes present. No fracture or dislocation. JOINTS: The joint spaces are well maintained. Small joint effusion. SOFT TISSUE: Atherosclerosis. IMPRESSION: Stable postoperative changes. DATA REPOSITORY: RADIATION DOSE DELIVERED:
== END ==
PROVIDERS: PCP Nurse Practitioner Family; Referring Provider Nurse Practitioner Family; Visit Provider Student in an Organized Health Care Education/Training Program
DX: Z96.652 Presence of left artificial knee joint (principal); Z47.1 Aftercare following joint replacement surgery
CPT/HCPCS: 73560

== ENCOUNTER 2021-01-07 10:25 | Outpatient (CLI) | payer MEDICARE, OTHER, SELFPAY ==
--- NOTE | 2021-01-07 08:45 | DI.RAD_ITS ---
Exam(s) XR KNEE LT 3V AP,LAT,JEREMY EXAM: XR KNEE LT 3V AP,LAT,JEREMY CLINICAL HISTORY: new L TKA pain. TECHNIQUE: 2D digital imaging was performed. COMPARISON: CR XR KNEE LT 2V AP,LAT from 07/03/2020 FINDINGS: Position and alignment of components of prosthesis remain stable. No fracture or loosening evident. IMPRESSION: DATA REPOSITORY: RADIATION DOSE DELIVERED:
== END 2021-01-07 10:26 | disposition home or self-care (01) ==
LOC: DIORS 10:25
PROVIDERS: PCP Nurse Practitioner Family; Referring Provider Nurse Practitioner Family; Visit Provider Student in an Organized Health Care Education/Training Program
DX: R20.8 Other disturbances of skin sensation (principal); T84.84XA Pain due to internal orthopedic prosthetic devices, implants and grafts, initial encounter; Z96.652 Presence of left artificial knee joint; M25.562 Pain in left knee
CPT/HCPCS: 73562; 99213

== ENCOUNTER 2021-02-01 01:25 | Outpatient (CLI) | payer MEDICARE, OTHER, SELFPAY ==
--- NOTE | 2021-02-01 07:15 | DI.CT_ITS ---
Exam(s) CT LOWER EXTREMITY LT CTA EXAM: CT LOWER EXTREMITY LT CTA CLINICAL HISTORY: Decreased temperature and paiN,POSTOPERATIVE LT KNEE REPLACEMENT TECHNIQUE: COMPARISON: CR XR KNEE LT 3V AP,LAT,JEREMY from 01/07/2021 CR XR KNEE LT 3V AP,LAT,JEREMY from 01/07/2021 FINDINGS: There is a left hip prosthesis. Field of view of the CTA is from the mid left thigh down to mid left calf. There is moderate calcified and noncalcified plaque within the left SFA artery within Jhon's canal but no occlusion. Difficult to assess this vessel behind the knee due to the beam hardening artifact from the prosthesis. Therefore the popliteal artery cannot be assessed. The tibioperoneal trunk is patent. The proximal anterior tibial artery does not exhibit evidence of stenosis. There is good t hree-vessel runoff visualized upper half of the calf included in the field of view of this study. IMPRESSION: 1. Field of view of this study is a mid left thigh down to mid calf level 2. Visualization of the popliteal artery is obscured by the beam hardening artifact from the knee pro sthesis micro 3. There is 3 vessel runoff visualized in the upper half of the calf which is the field of view of th is study.
[2021-02-01 12:33] LABS: ESR 42 mm/hr (0-30)
[2021-02-01 12:42] LABS: C-Reactive Protein 0.22 mg/dL (0.0-0.3); Estimated GFR 57.56 (mL/min/1.73m2)
[2021-02-01] MEDS: Omnipaque 350 MG/ML 100 ML BTL IV (14:02)
[2021-02-01] MEDS: Omnipaque 350 MG/ML 50 ML BTL IV (14:07)
[2021-02-01] MEDS: Normal Saline - Diluent 50 ML VIAL IV ×2 (14:07→14:08)
== END 2021-02-01 01:45 ==
PROVIDERS: PCP Nurse Practitioner Family; Visit Provider Student in an Organized Health Care Education/Training Program
DX: T84.84XA Pain due to internal orthopedic prosthetic devices, implants and grafts, initial encounter (principal); Z96.652 Presence of left artificial knee joint; R20.9 Unspecified disturbances of skin sensation; Y83.8 Other surgical procedures as the cause of abnormal reaction of the patient, or of later complication, without mention of misadventure at the time of the procedure
CPT/HCPCS: 73706; 85652; 82565; 86140; J3490; Q9967

== ENCOUNTER 2022-10-25 02:10 | Outpatient (CLI) | payer MEDICARE, OTHER, SELFPAY ==
[2022-10-25 09:09] LABS: Abs Immature Grans 0.07 10^3/uL (0.0-0.06); Absolute Basophil Count 0.07 10^3/uL (0.0-0.2); Absolute Lymphocyte Count 2.84 10^3/uL (1.2-3.4); Absolute Monocyte Count 1.05 10^3/uL (0.1-0.8); Basophils % 0.6; Eosinophils % 2.7; HCT 37.6 % (36.0-46.0); Immature Grans % 0.6; Lymphocytes % 25.2; MCH 28.5 pg (27.0-33.0); MCHC 31.9 % (32.0-36.0); MCV 89 fL (80-95); MPV 9.5 fL (8.0-11.0); Monocytes % 9.3; Neutrophils % 61.6; Platelet Count 372 10^3/uL (130-400); RBC 4.21 10^6/uL (3.93-5.22); RDW 13.7 % (11.7-14.6); RDW-SD 44.8 fL; WBC 11.25 10^3/uL (4.4-10.8)
[2022-10-25 09:10] LABS: Absolute Neutrophil Count 6.93 10^3/uL (1.2-6.7)
[2022-10-25 09:46] LABS: ALT 25 U/L (14-59); AST 15 U/L (15-37); Albumin 3.6 g/dL (3.4-5.0); Alkaline Phosphatase 91 U/L (46-116); Anion Gap 7.5 mmol/L (3-11); BUN 28 mg/dL (7-18); Bilirubin, Total 0.1 mg/dL (0.2-1.0); CO2 25.5 mmol/L (21.0-32.0); CREATININE 1.3 mg/dL (0.55-1.02); Calcium 9.2 mg/dL (8.5-10.1); Calculated LDL 82 mg/dL (<100); Chloride 107 mmol/L (98-107); Cholesterol 173 mg/dL (<200); Estimated GFR 48.26 (mL/min/1.73m2); Glucose 176 mg/dL (74-106); HDL Cholesterol 43 mg/dL (40-60); Potassium 4.6 mmol/L (3.5-5.1); Sodium 140 mmol/L (136-145); Total Protein 8.2 g/dL (6.4-8.2); Triglyceride 241 mg/dL (<150)
== END 2022-10-25 02:11 | disposition home or self-care (01) ==
LOC: LBO 02:11
PROVIDERS: PCP Nurse Practitioner Family; Visit Provider Nurse Practitioner Family
DX: Z51.81 Encounter for therapeutic drug level monitoring (principal); E11.29 Type 2 diabetes mellitus with other diabetic kidney complication; I10 Essential (primary) hypertension; E78.5 Hyperlipidemia, unspecified
CPT/HCPCS: 36415; 80053; 80061; 85025

== ENCOUNTER 2022-11-22 02:57 | Outpatient (CLI) | payer MEDICARE, OTHER, SELFPAY | END 2022-11-22 02:58 | disposition home or self-care (01) | LOC: DS 02:57 | PROVIDERS: PCP Nurse Practitioner Family; Visit Provider Dietitian, Registered | DX: E11.9 Type 2 diabetes mellitus without complications (principal); Z79.4 Long term (current) use of insulin; Z71.3 Dietary counseling and surveillance | CPT/HCPCS: 97803 ==

== ENCOUNTER 2023-03-23 04:11 | Outpatient (CLI) | payer MEDICARE, OTHER, SELFPAY ==
[2023-03-23 09:51] LABS: Abs Immature Grans 0.06 10^3/uL (0.0-0.06); Absolute Basophil Count 0.05 10^3/uL (0.0-0.2); Absolute Lymphocyte Count 2.86 10^3/uL (1.2-3.4); Basophils % 0.4; Eosinophils % 2.6; HGB 11.3 g/dL (11.2-15.7); Immature Grans % 0.5; Lymphocytes % 24.3; MCH 27.9 pg (27.0-33.0); MCHC 31.4 % (32.0-36.0); MCV 89 fL (80-95); MPV 9.8 fL (8.0-11.0); Monocytes % 8.8; Neutrophils % 63.4; Platelet Count 377 10^3/uL (130-400); RBC 4.05 10^6/uL (3.93-5.22); RDW 14.3 % (11.7-14.6); RDW-SD 46.4 fL; WBC 11.76 10^3/uL (4.4-10.8)
[2023-03-23 09:56] LABS: Absolute Eosinophil Count 0.31 10^3/uL (0.0-0.7); Absolute Monocyte Count 1.03 10^3/uL (0.1-0.8); Absolute Neutrophil Count 7.46 10^3/uL (1.2-6.7)
[2023-03-23 10:37] LABS: COMMENT (LAB VIEW ONLY) 24.49 mg/dL; Microalb ug/mg Crea 13.1 ug/mg Cr
== END 2023-03-23 04:12 | disposition home or self-care (01) ==
LOC: LBO 04:12
PROVIDERS: PCP Nurse Practitioner Family; Referring Provider Nurse Practitioner Family; Visit Provider Nurse Practitioner Family
DX: E11.29 Type 2 diabetes mellitus with other diabetic kidney complication (principal); D64.9 Anemia, unspecified; R80.9 Proteinuria, unspecified
CPT/HCPCS: 36415; 82043; 82570; 85025

== ENCOUNTER → 2023-10-26 10:20 | Outpatient (BNVA) | payer MEDICARE, OTHER, SELFPAY | PROVIDERS: PCP Nurse Practitioner Adult Health; Referring Provider Nurse Practitioner Adult Health | DX: M65.332 Trigger finger, left middle finger (principal) | CPT/HCPCS: 99213 ==

== ENCOUNTER 2023-11-28 06:08 | Day surgery (SDC) | payer MEDICARE, OTHER, SELFPAY ==
[2023-11-28 06:36] VITALS: BP 143/65; PULSE 75; RESP 16; TEMP 36.9; O2SAT 97
--- NOTE | 2023-11-28 07:04 | W.PM.DSUDISC ---
Date of service: 11/28/23 Time of Service: 07:05 Discharge Plan Disposition Patient Disposition: Home Condition: Good Discharge Details Reason For Visit: LMF Trigger Release Attending Provider: Roger Kerns Primary Care Provider: Inga Samson Home Meds and New Rx's Prescriptions: New acetaminophen 500 mg tablet 1,000 mg PO TID Qty: 90 0RF ibuprofen 600 mg tablet 600 mg PO TID PRN (Reason: pain) Qty: 90 0RF Continued cyclobenzaprine 10 mg tablet 10 mg PO BID PRN (Reason: muscle spasm) Qty: 45 3RF Rx Instructions: 45 pills for 90 days for chronic pain spine, fibromyalgia metformin 1,000 mg tablet 1,000 mg PO BID Qty: 180 3RF Jardiance 25 mg tablet 25 mg PO DAILY Qty: 90 3RF duloxetine 60 mg capsule,delayed release(DR/EC) 60 mg PO DAILY Qty: 90 3RF Rx Instructions: FOR FIBROMYALGIA/CHRONIC PAIN/DEPRESSION insulin glargine [Lantus Solostar U-100 Insulin] 100 unit/mL (3 mL) insulin pen 88 unit subcut HS Qty: 27 3RF Patient Comments: pt. reports taking 42 units last night Rx Instructions: Dx: E11.9 to maintain HbA1c less than 7% omeprazole 20 mg capsule,delayed release(DR/EC) 20 mg PO BID Qty: 180 3RF Rx Instructions: Take at least 30 minutes before meal atorvastatin 20 mg tablet 20 mg PO QHS Qty: 90 3RF Rx Instructions: Change to moderate intensity statin (09/04/23) topiramate 50 mg tablet 50 mg PO BID Qty: 180 3RF lisinopril 20 mg tablet 20 mg PO DAILY Qty: 90 3RF Rx Instructions: FOR HIGH BLOOD PRESSURE Victoza 3-Anastacio 0.6 mg/0.1 mL (18 mg/3 mL) pen injector 1.8 mg SC DAILY Qty: 9 3RF insulin aspart U-100 [Novolog FlexPen U-100 Insulin] 100 unit/mL (3 mL) insulin pen See Rx Instructions Sub-Q AC Qty: 25 3RF Dose Instruction: Sub-Q AC; Dosing per sliding scale Dx: E11.9 to maintain HbA1c less than 7% Rx Instructions: 0-15 Sub-Q AC; Dosing per sliding scale (DME) FreeStyle Rodney 2 [place] Misc See Rx Instructions .ROUTE .MEDSUPPLY Qty: 1 0RF Rx Instructions: As directed albuterol sulfate [Proventil HFA] 90 mcg/actuation HFA aerosol inhaler 1 - 2 puff Inhalation Q4-6H PRN Qty: 1 3RF Rx Instructions: Dispense whichever brand albuterol inhaler is covered by insurance trazodone 100 mg tablet 150 mg PO HS Qty: 135 3RF (DME) FreeStyle Rodney 2 Sensor Kit See Rx Instructions .ROUTE .MEDSUPPLY Qty: 6 3RF Rx Instructions: As directed Discontinued acetaminophen 500 mg tablet 1,000 mg PO Q8H PRN (Reason: pain) Qty: 360 3RF Discharge Instructions Stand Alone Forms: Saumya Brooks Finger Release Referrals: Roger Kerns MD [ [facility]] - Activity:: Activity as Tolerated Remove Dressings/Wound Care:: 48 hours Shower/Bathe:: 48 hours Diet:: As Tolerated Discharge Orders Discharge Orders: Discharge Order (Routine); Ordered 11/28/23 Ordered By: Antonio Guevara DS: Diagnosis Discharge Diagnosis (1) Trigger finger, left middle finger: Status: Acute
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
[2023-11-28 08:01] VITALS: PULSE 72; RESP 16; TEMP 36.7; O2SAT 98
[2023-11-28 08:02] VITALS: BP 131/58; PULSE 61; RESP 16; TEMP 36.7; O2SAT 98
[2023-11-28] MEDS: Sodium Bicarbonate 50 MEQ/50 ML VIAL (08:11)
[2023-11-28] MEDS: Lidocaine 1% Multi-Dose W/EPI 1/100,000 50 ML VIAL (08:11)
== END 2023-11-28 08:20 | disposition home or self-care (01) ==
PROVIDERS: PCP Nurse Practitioner Adult Health; Visit Provider Student in an Organized Health Care Education/Training Program
PROC: (CPT 26055; principal; 2023-11-28 07:30)
DX: M65.332 Trigger finger, left middle finger (principal)
CPT/HCPCS: 26055; J2004

== ENCOUNTER → 2023-12-08 09:38 | Outpatient (BNVA) | payer MEDICARE, OTHER, SELFPAY | PROVIDERS: PCP Nurse Practitioner Adult Health; Referring Provider Nurse Practitioner Adult Health | DX: Z47.89 Encounter for other orthopedic aftercare (principal); M65.332 Trigger finger, left middle finger ==

== ENCOUNTER 2025-01-21 03:12 | Outpatient (CLI) | payer MEDICARE, OTHER, SELFPAY ==
[2025-01-21 08:38] LABS: Hemoglobin A1C 6.8 % (<5.7)
[2025-01-21 08:52] LABS: Anion Gap 8.6 mmol/L (3-11); BUN 17 mg/dL (7-18); CO2 24.4 mmol/L (21.0-32.0); Calcium 8.9 mg/dL (8.5-10.1); Calculated LDL 56 mg/dL (<100); Chloride 109 mmol/L (98-107); Cholesterol 112 mg/dL (<200); Estimated GFR 57.88 (mL/min/1.73m2); Glucose 90 mg/dL (74-106); HDL Cholesterol 38 mg/dL (>or=50); Potassium 4.6 mmol/L (3.5-5.1); Sodium 142 mmol/L (136-145); Triglyceride 93 mg/dL (<150); Vitamin B12 228 pg/mL (193-986)
[2025-01-21 09:28] LABS: COMMENT (LAB VIEW ONLY) 38.58 mg/dL; Microalb ug/mg Crea 12.2 ug/mg Cr
== END 2025-01-21 03:13 | disposition home or self-care (01) ==
LOC: LBO 03:12
PROVIDERS: Absent Provider Nurse Practitioner Adult Health; PCP Nurse Practitioner Adult Health; Referring Provider Nurse Practitioner Adult Health; Visit Provider Nurse Practitioner Adult Health
DX: E78.5 Hyperlipidemia, unspecified (principal); E11.29 Type 2 diabetes mellitus with other diabetic kidney complication; R80.9 Proteinuria, unspecified; Z79.4 Long term (current) use of insulin; E53.9 Vitamin B deficiency, unspecified; I10 Essential (primary) hypertension; Z68.36 Body mass index [BMI] 36.0-36.9, adult; N18.31 Chronic kidney disease, stage 3a; F51.04 Psychophysiologic insomnia
CPT/HCPCS: 36415; 80048; 80061; 82043; 82570; 82607; 83036